=== PATIENT | female | born 1965 | race Asian ===

== ENCOUNTER 2025-04-11 05:52 | Day surgery (SDC) | payer OTHER ==
[2025-04-11] VITALS (14 sets, daily range): BP systolic 95–128; BP diastolic 51–78; PULSE 85–95; RESP 16–18; TEMP 97.3–98.3
[~2025-04-11] VITALS: Ht 149.9 cm; Wt 62.6 kg
[2025-04-11] MEDS: 0.9%NACL 1000ML 1,000 ML IV ONE (06:47)
[2025-04-11] MEDS ORDERED: LIDOCAINE HCL 400MG/20ML VIAL ONE (07:01)
--- NOTE | 2025-04-11 09:24 | NUR ---
DISCHARGE PT DISCHARGED HOME ACCOMPANIED BY FRIEND, RT WRIST PIV DISCONTINUED - CATHETER INTACT. NO C/O ANY KIND - DISCHARGED INSTRUCTIONS GIVEN TO PATIENT. PATIENT ESCORTED VIA W/C TO THE CAR BY NURSE, AND ASSISTED INTO THE VEHICLE - WITH FRIEND BY HER SIDE. PATIENT VERBALIZED UNDERSTANDING OF DISCHARGE INSTRUCTIONS, NO CONCERNS AT THIS TIME. MARILIA WOMACK RN MSN
== END 2025-04-11 08:25 | disposition home or self-care (01) ==
LOC: ENDO 05:52 → DAH 05:52 → ENDO 08:25
PROVIDERS: ATTEND Internal Medicine
DX: K59.01 Slow transit constipation (principal); K64.0 First degree hemorrhoids; K57.30 Diverticulosis of large intestine without perforation or abscess without bleeding; K31.89 Other diseases of stomach and duodenum; K21.00 Gastro-esophageal reflux disease with esophagitis, without bleeding; I10 Essential (primary) hypertension; E78.5 Hyperlipidemia, unspecified; Z79.899 Other long term (current) drug therapy
CPT/HCPCS: 43239; 45378; J3010; J3490 ×2; J7030 ×2; J2704; J2405; A4620; A4215 ×2; A4223; A4657; A7002; A4222; A4663; A4606